=== PATIENT | male | born 1980 | race Caucasian/White ===

== ENCOUNTER 2024-09-07 12:21 | Emergency (ER) | payer OTHER ==
[~2024-09-07] VITALS: Ht 180.3 cm; Wt 86.2 kg
[2024-09-07] MEDS ORDERED: METOCLOPRAMIDE HCL 10 MG/2 ML VIAL ONE (13:05)
[2024-09-07] MEDS ORDERED: diphenhydrAMINE 50 MG/1 ML VIAL ONE (13:05)
[2024-09-07] MEDS ORDERED: MAGNESIUM SULFATE/D5W 100 ML ONE (13:06)
[2024-09-07] MEDS ORDERED: KETOROLAC TROMETHAMINE 30 MG INJ ONE (13:06)
[2024-09-07] MEDS: METOCLOPRAMIDE HCL 10 MG/2 ML VIAL IV ONE (13:10)
[2024-09-07] MEDS: KETOROLAC TROMETHAMINE 30 MG INJ IVP ONE (13:10)
[2024-09-07] MEDS: IV NS 1000 ML 1,000 ML IV ONE (13:10)
[2024-09-07] MEDS: diphenhydrAMINE 50 MG/1 ML VIAL IV ONE (13:11)
[2024-09-07] MEDS: MAGNESIUM SULFATE/D5W 100 ML IV SCH (14:00)
[2024-09-07] MEDS ORDERED: DIPH25CA83 PO (14:57)
[2024-09-07] MEDS ORDERED: NAPR500T6 PO (14:57)
[2024-09-07] MEDS ORDERED: METO-295 PO (14:57)
[2024-09-07 15:05] VITALS: BP 129/77; O2SAT 100
== END 2024-09-07 15:05 | disposition home or self-care (01) ==
LOC: ER 12:21
DX: G43.909 Migraine, unspecified, not intractable, without status migrainosus (principal)
CPT/HCPCS: 99284; 96365; 96375; 96361; J1885; J1200; J3475; J2765; J7040; A4606; A4663